=== PATIENT | female | born 1970 | race Two or more races ===

== ENCOUNTER 2024-04-29 20:11 | Emergency (ER) | payer OTHER ==
[~2024-04-29] VITALS: Ht 152.4 cm; Wt 59.0 kg
[2024-04-29] MEDS ORDERED: TETANUS & DIPHTHERIA TOX,ADULT 0.5 ML VIAL IM ONE (20:30)
[2024-04-29] MEDS ORDERED: CEFTRIAXONE SODIUM 1,000 MG VIAL IM ONE (20:30)
[2024-04-29] MEDS ORDERED: KETOROLAC TROMETHAMINE 60 MG VIAL IM ONE ×2 (20:30→20:34)
[2024-04-29] MEDS ORDERED: TETANUS DIPHTHERIA TOX. ADSOR 5 ML VIAL IM ONE (20:34)
[2024-04-29] MEDS ORDERED: CEFTRIAXONE SODIUM 1,000 MG VIAL ONE (20:34)
== END 2024-04-29 21:05 | disposition home or self-care (01) ==
LOC: ER 20:11
DX: S81.859A Open bite, unspecified lower leg, initial encounter (principal); W54.0XXA Bitten by dog, initial encounter; Y93.89 Activity, other specified; Y92.89 Other specified places as the place of occurrence of the external cause; Y99.8 Other external cause status
CPT/HCPCS: 96372; 99282; J0696; J1885